=== PATIENT | male | born 1965 | race Caucasian/White ===

== ENCOUNTER 2023-01-22 09:05 | Day surgery (SDC) | payer BC ==
[2023-01-18 12:43] VITALS: BMI 35.9
[~2023-01-22 09:05] MED LIST: Dexmedetomidine 200 MCG/2 ML VIAL ONE; Lidocaine 4% Topical Sol 50 ML BOT ONE; Oxymetazoline HCl 0.05% ( 15 ML ) ONE; SUGAMMADEX SODIUM 200 MG/2 ML VIAL ONE
[2023-01-22] MEDS ORDERED: PROPOFOL 20 ML ONE (11:34)
[2023-01-22] MEDS ORDERED: fentaNYL 50 mcg/mL 1 mL Vial ONE (11:35)
[2023-01-22] MEDS ORDERED: Rocuronium Bromide 10 MG/ML (10ML VIAL) ONE (11:36)
[2023-01-22] MEDS ORDERED: Dexamethasone 4 mg/ml Vial ONE (11:36)
[2023-01-22] MEDS ORDERED: Ondansetron PF 4 MG/2 ML Vial ONE (11:36)
[2023-01-22] MEDS ORDERED: EPINEPHrine 1 MG/ML AMP ONE (12:03)
[2023-01-22 12:05] LABS: Hemoglobin 13.1 g/dL (13.5-17.5); Mean Corpuscular HGB CONC 32.7 g/dL (32.0-36.0); Mean Corpuscular Hemoglobin 27.6 pg (27.0-33.0); Mean Corpuscular Volume 84.4 fl (81.2-95.1); Mean Platelet Volume 9.4 fl (7.4-10.4); Platelet Count 251 10x3/uL (150-450); Red Blood Cell (RBC) Count 4.75 10x6/uL (4.32-5.72); White Blood Cell (WBC) Count 7.2 10x3/uL (3.5-10.5)
[2023-01-22 12:29] LABS: Anion Gap 13 mmol/L (10-20); BUN (Urea Nitrogen) 18 mg/dL (8.4-25.7); Calc. Creatinine Clearance 140 mL/min (70-130); Calcium 9.5 mg/dL (7.8-10.44); Carbon Dioxide 27 mmol/L (22-29); Chloride 105 mmol/L (98-107); Estimated GFR 88; Glucose 110 mg/dL (70-105); Potassium 4.3 mmol/L (3.5-5.1); Sodium 141 mmol/L (136-145)
[2023-01-22] MEDS ORDERED: Glycopyrrolate 0.2 MG/ML 5 ML SYRINGE ONE (12:44)
[2023-01-22] MEDS ORDERED: ePHEDrine Sulfate 50 MG/10 ML VIAL ONE (12:48)
[2023-01-22] MEDS ORDERED: Hydrocodone-Acetamin 15 ML UDCUP ONE (14:14)
== END 2023-01-22 15:05 | disposition home or self-care (01) ==
LOC: CSHSDC 09:05
PROVIDERS: ATTEND Otolaryngology Otolaryngic Allergy
PROC: 0CBM8ZX Excision of Pharynx, Via Natural or Artificial Opening Endoscopic, Diagnostic (ICD-10-PCS; principal; 2023-01-22)
PROC: 0C9 Mouth and Throat, Drainage (ICD-10-PCS; principal; 2023-01-22)
DX: K11.8 Other diseases of salivary glands (principal); R22.1 Localized swelling, mass and lump, neck; D37.02 Neoplasm of uncertain behavior of tongue; I10 Essential (primary) hypertension; I25.10 Atherosclerotic heart disease of native coronary artery without angina pectoris; E66.9 Obesity, unspecified; E11.9 Type 2 diabetes mellitus without complications; Z79.82 Long term (current) use of aspirin; Z79.84 Long term (current) use of oral hypoglycemic drugs; Z79.899 Other long term (current) drug therapy; Z68.35 Body mass index [BMI] 35.0-35.9, adult
CPT/HCPCS: 80048; 85027; 88173; 88184; J0171; J1100; J2405; J2704; J3010